=== PATIENT | male | born 1965 | race Caucasian/White ===

== ENCOUNTER → 2020-09-05 | Outpatient (CLI) | payer MEDICAID ==
[2020-09-05 13:45] LABS: Total Bilirubin 0.7 mg/dL (0.3-1.2)
[2020-09-05 13:54] LABS: Ferritin 230.2 ng/mL (22.0-322.0)
[2020-09-05 17:10] LABS: Hemoglobin A1C 7.7 % (4.0-6.0)
== END | disposition home or self-care (01) ==
LOC: LABWHC1 08:16
PROVIDERS: ATTEND Family Medicine
DX: R73.9 Hyperglycemia, unspecified (principal); R94.5 Abnormal results of liver function studies
CPT/HCPCS: 36415; 82247; 82728; 82947; 83036; 83540; 84450; 84460

== ENCOUNTER → 2021-02-04 | Outpatient (CLI) | payer MEDICAID ==
[2021-02-04 14:51] LABS: ALT 43 U/L (10-49); AST 21 U/L (14-35); African American GFR (CKD) 85.9 (60.0-200.0); Albumin 4.6 g/dL (3.8-4.9); Alkaline Phosphatase 58 U/L (41-126); BUN/Creat Ratio 22.09 Ratio (12.00-20.00); Blood Urea Nitrogen 24.3 mg/dL (9.0-27.0); Calcium 9.4 mg/dL (8.7-10.3); Carbon Dioxide 22.8 mmol/L (20.0-27.5); Chloride 105 mmol/L (96-109); Chol/HDL Ratio 4.61 Ratio; Creatine Kinase 53 U/L (35-257); Globulin 1.7 g/dL (1.6-3.3); Glucose 130 mg/dL (70-110); Non-African American GFR(CKD) 74.1 (60.0-200.0); Potassium 4.2 mmol/L (3.5-5.5); Sodium 141 mmol/L (135-145); Total Protein 6.3 g/dL (6.2-8.2)
== END | disposition home or self-care (01) ==
LOC: LABWHC1 07:23
PROVIDERS: ATTEND Family Medicine
DX: E11.9 Type 2 diabetes mellitus without complications (principal); I10 Essential (primary) hypertension
CPT/HCPCS: 36415; 80053; 80061; 82550; 83036

== ENCOUNTER → 2021-10-06 | Outpatient (CLI) | payer MEDICAID ==
[2021-10-06 11:35] LABS: ALT 26 U/L (10-49); AST 19 U/L (14-35); African American GFR (CKD) 103.2 (60.0-200.0); Albumin 4.6 g/dL (3.8-4.9); Albumin/Globulin Ratio 2.83 (1.60-3.17); Alkaline Phosphatase 47 U/L (41-126); BUN/Creat Ratio 26.28 Ratio (12.00-20.00); Blood Urea Nitrogen 24.7 mg/dL (9.0-27.0); Calcium 9.3 mg/dL (8.7-10.3); Carbon Dioxide 24.3 mmol/L (20.0-27.5); Chloride 104 mmol/L (96-109); Chol/HDL Ratio 4.64 Ratio; Globulin 1.6 g/dL (1.6-3.3); Glucose 115 mg/dL (70-110); LDL Cholesterol,Calculated 109.6 mg/dL (0.0-131.0); Potassium 4.3 mmol/L (3.5-5.5); Sodium 140 mmol/L (135-145); Total Protein 6.2 g/dL (6.2-8.2)
[2021-10-07 00:07] LABS: Microalbumin Creatinine Ratio <30 mg/g Creat (0-30)
== END | disposition home or self-care (01) ==
LOC: LABWHC1 07:16
PROVIDERS: ATTEND Family Medicine
DX: I10 Essential (primary) hypertension (principal); E78.5 Hyperlipidemia, unspecified
CPT/HCPCS: 36415; 80053; 80061; 82043; 82570; 83036; 83721

== ENCOUNTER → 2022-09-16 | Outpatient (CLI) | payer MEDICAID ==
[2022-09-16 11:47] LABS: Blood Urea Nitrogen 22.6 mg/dL (9.0-27.0); Chloride 107 mmol/L (96-109); Chol/HDL Ratio 4.48 Ratio; Glucose 123 mg/dL (70-110); LDL Cholesterol,Calculated 116.7 mg/dL (0.0-131.0); Potassium 4.4 mmol/L (3.5-5.5); Sodium 141 mmol/L (135-145)
[2022-09-16 11:48] LABS: ALT 22 U/L (10-49); AST 19 U/L (14-35); Albumin 4.4 d/dL (3.8-4.9); Albumin/Globulin Ratio 2.59 Ratio (1.60-3.17); Alkaline Phosphatase 40 U/L (41-126); Calcium 9.4 mg/dL (8.7-10.3); Carbon Dioxide 25.1 mmol/L (21.6-31.8); Globulin 1.7 d/dL (1.6-3.3); Total Bilirubin 0.6 mg/dL (0.3-1.2); Total Protein 6.1 d/dL (6.2-8.2)
[2022-09-16 22:18] LABS: Microalbumin Creatinine Ratio <16 mg/g Cr (0-30); Urine Creatinine 75.8 mg/dL (39.0-259.0)
== END | disposition home or self-care (01) ==
LOC: LABWHC1 07:31
PROVIDERS: ATTEND Family Medicine
DX: Z12.5 Encounter for screening for malignant neoplasm of prostate (principal); I10 Essential (primary) hypertension; E11.9 Type 2 diabetes mellitus without complications
CPT/HCPCS: 36415; 80053; 80061; 82043; 82570; 83036; 84153

== ENCOUNTER → 2023-06-07 | Outpatient (CLI) | payer MEDICAID ==
[2023-06-07 18:21] LABS: Basophils # (A) 0.06 X 10*3/uL (0.00-0.10); Eosinophils # (A) 0.29 X 10*3/uL (0.04-0.35); Eosinophils % (A) 4.8 %; HGB 14.8 g/dL (13.0-17.0); Lymphocytes # (A) 2.12 X 10*3/uL (0.90-5.00); Lymphocytes % (A) 35.3 %; MCH 31.8 pg (27.0-32.0); MCHC 34.4 g/dL (32.0-37.0); MCV 92.3 FL (80.0-97.0); Mean Platelet Volume 10.8 FL (9.5-12.2); Monocytes # (A) 0.56 X 10*3/uL (0.20-1.00); Monocytes % (A) 9.3 %; NRBC Per 100 WBC 0 X 10*3/uL (0.00-0.01); Neutrophils # (A) 2.97 X 10*3/uL (1.80-7.70); Neutrophils % (A) 49.4 %; Platelet Count 169 X 10*3/uL (140-440); RBC 4.66 X 10*6/uL (4.40-5.60); RDW 12.6 % (11.5-14.5); WBC 6.01 X 10*3/uL (4.50-10.00)
[2023-06-07 18:37] LABS: Amylase 54 U/L (23-121); BUN/Creat Ratio 15.36 Ratio (12.00-20.00); Blood Urea Nitrogen 16.9 mg/dL (9.0-27.0); Chloride 104 mmol/L (96-109); Glucose 97 mg/dL (70-110); Sodium 142 mmol/L (135-145)
[2023-06-07 18:38] LABS: ALT 30 U/L (10-49); AST 17 U/L (14-35); Albumin 4.5 g/dL (3.8-4.9); Alkaline Phosphatase 42 U/L (41-126); Calcium 9.4 mg/dL (8.7-10.3); Globulin 1.8 g/dL (1.6-3.3); Lipase 35 U/L (14-60); Total Bilirubin 0.4 mg/dL (0.3-1.2); Total Protein 6.3 g/dL (6.2-8.2)
== END | disposition home or self-care (01) ==
LOC: LABWHC1 15:44
PROVIDERS: ATTEND Family Medicine
DX: R10.9 Unspecified abdominal pain (principal)
CPT/HCPCS: 36415; 80053; 82150; 83690; 85025